=== PATIENT | male | born 1985 | race Caucasian/White ===

== ENCOUNTER 2017-09-28 15:15 | Emergency (ER) | payer SELFPAY ==
--- NOTE | 2017-09-28 16:45 | ER Document Report ---
ED General - General Mode of Arrival: Ambulatory Information source: Patient TRAVEL OUTSIDE OF THE [place] IN LAST 30 DAYS: No <ERIN LAM - Last Filed: 09/28/17 18:51> <ALBERTO MELO - Last Filed: 09/28/17 19:06> - General Chief Complaint: Flu Symptoms Stated Complaint: FLU SYMPTOMS Time Seen by Provider: 09/28/17 16:17 Notes: Patient is a 31 year old male with a history of sepsis presents to the emergency department complaining of flu like symptoms including body aches, heart palpitations (described as his heart beating hard),sore throat and a fever of 102. Patient states his and daughter has also recently had the flu. Patient denies nausea, vomiting, diarrhea, rhinorrhea, earaches or chest pain. Patient states he was septic 3 months ago and expresses concern due to him having similar symptoms. Patient states he is an heroin addict. (ERIN LAM) - Related Data Allergies/Adverse Reactions: No Known Allergies Allergy (Unverified 09/28/17 15:20) Past Medical History - General Information source: Patient - Social History Smoking Status: Current Every Day Smoker Frequency of alcohol use: None Drug Abuse: Heroin Family History: Reviewed & Not Pertinent <ERIN LAM - Last Filed: 09/28/17 18:51> Review of Systems - Review of Systems Constitutional: See HPI, Fever EENT: See HPI, Throat pain Cardiovascular: See HPI, Palpitations Respiratory: No symptoms reported Gastrointestinal: No symptoms reported Genitourinary: No symptoms reported Male Genitourinary: No symptoms reported Musculoskeletal: See HPI Skin: No symptoms reported Hematologic/Lymphatic: No symptoms reported Neurological/Psychological: No symptoms reported -: Yes All other systems reviewed and negative <ERIN LAM - Last Filed: 09/28/17 18:51> Physical Exam <ERIN LAM - Last Filed: 09/28/17 18:51> <ALBERTO MELO - Last Filed: 09/28/17 19:06> - Vital signs Vitals: Temp Pulse Resp BP Pulse Ox 98.9 F 85 16 130/79 H 100 09/28/17 15:42 09/28/17 15:42 09/28/17 15:42 09/28/17 15:42 09/28/17 15:42 - Notes Notes: GENERAL: Alert, interacts well. No acute distress. HEAD: Normocephalic, atraumatic. EYES: Pupils equal, round, and reactive to light. Extraocular movements intact. ENT: Oral mucosa moist, tongue midline. NECK: Full range of motion. Supple. Trachea midline. LUNGS: Clear to auscultation bilaterally, no wheezes, rales, or rhonchi. No respiratory distress. HEART: Regular rate and rhythm. No murmurs, gallops, or rubs. ABDOMEN: Soft, non-tender. Non-distended. Bowel sounds present in all 4 quadrants. EXTREMITIES: Injection sites in UE, no sign of infection. Moves all 4 extremities spontaneously. No edema, radial and dorsalis pedis pulses 2/4 bilaterally. No cyanosis. NEUROLOGICAL: Alert and oriented x3. Normal speech. PSYCH: Normal affect, normal mood. SKIN: Flushed. Warm, dry, normal turgor. (ERIN LAM) Course - Laboratory Result Diagrams: 09/28/17 17:00 09/28/17 17:00 <ERIN LAM - Last Filed: 09/28/17 18:51> - Laboratory Result Diagrams: 09/28/17 17:00 09/28/17 17:00 <ALBERTO MELO - Last Filed: 09/28/17 19:06> - Re-evaluation Re-evalutation: 09/28/17 18:17 CBC has monocytosis at 17.9 otherwise unremarkable, CMP unremarkable, blood cultures are pending. Patient presentation is actually quite unconcerning, however he has a recent (3 months ago) history of bacteremia likely coming from IV drug use. Patient continues to use IV drugs. I see no signs of bacterial endocarditis and there is no indication for admission, however I do feel it is prudent with his risk factors to send blood cultures to the lab and track them. Likely patient is developing an early and mild case of the flu. Blood cultures have been sent and they will be tracked. If they come back positive we will bring the patient back to the emergency department for IV antibiotics and further reassessment. Patient will be discharged home. Patient is aware of the plan and agrees with it. (ALBERTO MELO) - Vital Signs Vital signs: Temp Pulse Resp BP Pulse Ox 98.3 F 66 16 134/81 H 100 09/28/17 18:28 09/28/17 18:28 09/28/17 15:42 09/28/17 18:28 09/28/17 18:28 - Laboratory Laboratory results interpreted by me: 09/28/17 09/28/17 17:00 17:00 Monocytes % 17.9 H ALT 73 H Discharge <ERIN LAM - Last Filed: 09/28/17 18:51> <ALBERTO MELO - Last Filed: 09/28/17 19:06> - Discharge Clinical Impression: Prehypertension, IV drug user Arthralgia Qualifiers: Joint pain location: unspecified Qualified Code(s): M25.50 - Pain in unspecified joint Condition: Stable Disposition: HOME, SELF-CARE Additional Instructions: Today your blood work did not show any signs of overwhelming infection. You did not have any kidney damage. We gertrude blood cultures and will be keeping an eye on them. We will call you if we find any bacteria. In the meantime you may take ibuprofen and acetaminophen according to the directions on the bottle for body aches. These return to the emergency department for any new or concerning symptoms. Please consider seeking treatment for your IV drug use. Forms: Elevated Blood Pressure, Special Work Note Referrals: MISBAH GLASS MD [ACTIVE STAFF] - Follow up as needed Scribe Attestation: 09/28/17 19:06 I personally performed the services described in the documentation, reviewed and edited the documentation which was dictated to the scribe in my presence, and it accurately records my words and actions. (ALBERTO MELO) Scribe Documentation - Scribe Written by Marisabel:: Marisabel Niño, 09/28/2017 17:19 acting as scribe for :: Kiet <ERIN LAM - Last Filed: 09/28/17 18:51>
[2017-09-28 17:14] LABS: ABSOLUTE EOSINOPHILS # (AUTO) 0.1 10^3/uL (0.0-0.6); ABSOLUTE LYMPHOCYTES (AUTO) 0.7 10^3/uL (0.5-4.7); ABSOLUTE MONOCYTES (AUTO) 0.8 10^3/uL (0.1-1.4); ABSOLUTE NEUT (AUTO) 2.6 10^3/uL (1.7-8.2); EOSINOPHILS % (AUTO) 2.4 % (0-6); HEMATOCRIT 39.9 % (37.9-51.0); HEMOGLOBIN 13.7 g/dL (13.5-17.0); LYMPHOCYTES % (AUTO) 16.4 % (13-45); MEAN CORPUSCULAR HEMOGLOBIN 29.8 pg (27.0-33.4); MEAN CORPUSCULAR HGB CONC 34.4 g/dL (32.0-36.0); MEAN CORPUSCULAR VOLUME 87 fl (80-97); MONOCYTES % (AUTO) 17.9 % (3-13); PLATELET COUNT 215 10^3/uL (150-450); RED CELL DISTRIBUTION WIDTH 13.6 % (11.5-14.0); SEGMENTED NEUTROPHILS % (AUTO) 62.3 % (42-78); TOTAL CELLS COUNTED % (AUTO) 100 %; WHITE BLOOD COUNT 4.2 10^3/uL (4.0-10.5)
[2017-09-28 17:38] LABS: ALANINE AMINOTRANSFERASE 73 U/L (21-72); ALBUMIN 4.3 g/dL (3.5-5.0); ALKALINE PHOSPHATASE 71 U/L (38-126); ANION GAP 10 (5-19); ASPARTATE AMINO TRANSFERASE 47 U/L (17-59); BILIRUBIN,DIRECT 0.4 mg/dL (0.0-0.4); BILIRUBIN,TOTAL 0.6 mg/dL (0.2-1.3); BLOOD UREA NITROGEN 10 mg/dL (7-20); CALCIUM 9.9 mg/dL (8.4-10.2); CARBON DIOXIDE 29 mmol/L (22-30); CHLORIDE 100 mmol/L (98-107); GLUCOSE 94 mg/dL (75-110); POTASSIUM 4.6 mmol/L (3.6-5.0); SODIUM 138.7 mmol/L (137-145); TOTAL PROTEIN 7.5 g/dL (6.3-8.2)
[2017-09-28 18:30] VITALS: BP 134/81
== END 2017-09-28 18:30 | disposition home or self-care (01) ==
LOC: ER 15:15
DX: F11.20 Opioid dependence, uncomplicated (principal); R03.0 Elevated blood-pressure reading, without diagnosis of hypertension; M25.50 Pain in unspecified joint; R00.2 Palpitations; R50.9 Fever, unspecified; J02.9 Acute pharyngitis, unspecified; D72.821 Monocytosis (symptomatic); F17.200 Nicotine dependence, unspecified, uncomplicated; Z20.828 Contact with and (suspected) exposure to other viral communicable diseases
CPT/HCPCS: 36415; 80053; 85025; 87040; 99283